=== PATIENT | female | born 1980 | race Two or more races ===

== ENCOUNTER 2020-02-01 14:52 | Emergency (ER) | payer OTHER ==
[~2020-02-01] VITALS: Ht 160 cm; Wt 83.9 kg
[2020-02-01 14:53] VITALS: BP 147/100
--- NOTE | 2020-02-01 15:36 | NUR ---
covid swab sent to lab
== END 2020-02-01 15:38 | disposition home or self-care (01) ==
LOC: ER 14:52
DX: Z03.818 Encounter for observation for suspected exposure to other biological agents ruled out (principal)
CPT/HCPCS: 99283; U0003

== ENCOUNTER 2020-03-02 16:41 | Emergency (ER) | payer OTHER ==
[~2020-03-02] VITALS: Ht 162.6 cm; Wt 84.8 kg
[2020-03-02 17:01] VITALS: BP 138/75
--- NOTE | 2020-03-02 17:36 | NUR ---
Patient discharged to home in stable condition. Written and verbal after care instructions given. Patient verbalizes understanding of instruction.
== END 2020-03-02 17:36 | disposition home or self-care (01) ==
LOC: ER 16:42
DX: Z03.818 Encounter for observation for suspected exposure to other biological agents ruled out (principal)
CPT/HCPCS: 99283; C9803; U0003

== ENCOUNTER 2020-03-28 14:22 | Emergency (ER) | payer OTHER ==
[~2020-03-28] VITALS: Ht 162.6 cm; Wt 84.4 kg
[2020-03-28 14:30] VITALS: BP 140/91
== END 2020-03-28 15:14 | disposition home or self-care (01) ==
LOC: ER 14:22
DX: Z11.59 Encounter for screening for other viral diseases (principal)
CPT/HCPCS: 99283; C9803; U0003

== ENCOUNTER 2020-04-03 15:49 | Emergency (ER) | payer OTHER ==
[~2020-04-03] VITALS: Ht 165.1 cm; Wt 83.9 kg
[2020-04-03 15:50] VITALS: BP 127/88
--- NOTE | 2020-04-03 16:25 | NUR ---
COVID SWAB OBTAINED AND SENT TO LAB.
--- NOTE | 2020-04-03 16:29 | NUR ---
Patient discharged to home in stable condition. Written and verbal after care instructions given. Patient verbalizes understanding of instruction.
== END 2020-04-03 16:32 | disposition home or self-care (01) ==
LOC: ER 16:01
DX: Z11.59 Encounter for screening for other viral diseases (principal)
CPT/HCPCS: 99283; C9803; U0003

== ENCOUNTER 2020-04-27 16:22 | Emergency (ER) | payer OTHER ==
[~2020-04-27] VITALS: Ht 162.6 cm; Wt 80.7 kg
[2020-04-27 16:26] VITALS: BP 139/84
--- NOTE | 2020-04-27 17:02 | NUR ---
Discharge instructions done verbally.
== END 2020-04-27 17:03 | disposition home or self-care (01) ==
LOC: ER 16:23
DX: Z20.828 Contact with and (suspected) exposure to other viral communicable diseases (principal)
CPT/HCPCS: 99283; C9803; U0003

== ENCOUNTER 2020-05-03 15:47 | Emergency (ER) | payer OTHER ==
[~2020-05-03] VITALS: Ht 162.6 cm; Wt 79.4 kg
[2020-05-03 15:50] VITALS: BP 131/84
--- NOTE | 2020-05-03 16:10 | NUR ---
COVID SPECIMEN OBTAINED AND SENT TO LAB.
--- NOTE | 2020-05-03 16:16 | NUR ---
Patient discharged to home in stable condition. Written and verbal after care instructions given. Patient verbalizes understanding of instruction.
== END 2020-05-03 16:18 | disposition home or self-care (01) ==
LOC: ER 15:48
DX: Z20.828 Contact with and (suspected) exposure to other viral communicable diseases (principal)
CPT/HCPCS: 99283; C9803; U0003

== ENCOUNTER 2020-05-09 16:30 | Emergency (ER) | payer OTHER ==
[~2020-05-09] VITALS: Ht 162.6 cm; Wt 79.4 kg
[2020-05-09 16:33] VITALS: BP 133/86
--- NOTE | 2020-05-09 16:49 | NUR ---
COVID SWAB SENT
== END 2020-05-09 16:49 | disposition home or self-care (01) ==
LOC: ER 16:30
DX: Z20.828 Contact with and (suspected) exposure to other viral communicable diseases (principal); R03.0 Elevated blood-pressure reading, without diagnosis of hypertension
CPT/HCPCS: 99283; C9803; U0003

== ENCOUNTER 2020-05-20 17:14 | Emergency (ER) | payer OTHER ==
[~2020-05-20] VITALS: Ht 162.6 cm; Wt 81.6 kg
[2020-05-20 17:31] VITALS: BP 124/67
--- NOTE | 2020-05-20 17:55 | NUR ---
Patient discharged to home in stable condition. Written and verbal after care instructions given. Patient verbalizes understanding of instruction.
== END 2020-05-20 17:56 | disposition home or self-care (01) ==
LOC: ER 17:17
DX: Z20.828 Contact with and (suspected) exposure to other viral communicable diseases (principal)
CPT/HCPCS: 99283; C9803; U0003

== ENCOUNTER 2020-06-03 11:18 | Emergency (ER) | payer OTHER ==
[~2020-06-03] VITALS: Ht 162.6 cm; Wt 81.6 kg
[2020-06-03 11:56] VITALS: BP 133/61
--- NOTE | 2020-06-03 11:58 | NUR ---
COVID SWAB SENT, VERBAL DISCHARGE INSTRUCTIONS PROVIDED.
== END 2020-06-03 11:58 | disposition home or self-care (01) ==
LOC: ER 11:20
DX: Z20.828 Contact with and (suspected) exposure to other viral communicable diseases (principal)
CPT/HCPCS: 99283; C9803; U0003

== ENCOUNTER 2020-06-12 04:01 | Emergency (ER) | payer OTHER ==
[~2020-06-12] VITALS: Ht 162.6 cm; Wt 79.4 kg
[2020-06-12 04:03] VITALS: BP 127/75
--- NOTE | 2020-06-12 04:06 | NUR ---
called for covid swabs
== END 2020-06-12 06:04 | disposition home or self-care (01) ==
LOC: ER 04:05
DX: Z20.828 Contact with and (suspected) exposure to other viral communicable diseases (principal)
CPT/HCPCS: 99283; C9803; U0003

== ENCOUNTER 2020-06-23 16:31 | Emergency (ER) | payer OTHER ==
[~2020-06-23] VITALS: Ht 162.6 cm; Wt 79.4 kg
[2020-06-23 17:00] VITALS: BP 130/82
== END 2020-06-23 17:52 | disposition home or self-care (01) ==
LOC: ER 16:31
DX: Z20.828 Contact with and (suspected) exposure to other viral communicable diseases (principal)
CPT/HCPCS: 99283; C9803; U0003

== ENCOUNTER 2020-06-30 14:52 | Emergency (ER) | payer OTHER ==
[~2020-06-30] VITALS: Ht 162.6 cm; Wt 79.4 kg
[2020-06-30 14:56] VITALS: BP 121/77
--- NOTE | 2020-06-30 15:05 | NUR ---
COVID SPECIMEN OBTAINED AND SENT TO LAB.
--- NOTE | 2020-06-30 15:28 | NUR ---
Patient discharged to home in stable condition. Written and verbal after care instructions given. Patient verbalizes understanding of instruction.
== END 2020-06-30 15:30 | disposition home or self-care (01) ==
LOC: ER 14:53
DX: Z20.828 Contact with and (suspected) exposure to other viral communicable diseases (principal)
CPT/HCPCS: 99283; C9803; U0003

== ENCOUNTER 2020-07-05 15:52 | Emergency (ER) | payer OTHER ==
[~2020-07-05] VITALS: Ht 162.6 cm; Wt 79.4 kg
[2020-07-05 15:55] VITALS: BP 126/75
--- NOTE | 2020-07-05 17:26 | NUR ---
COVID SWAB SENT. Patient discharged to home in stable condition. Written and verbal after care instructions given. Patient verbalizes understanding of instruction.
== END 2020-07-05 17:29 | disposition home or self-care (01) ==
LOC: ER 15:55
DX: Z20.828 Contact with and (suspected) exposure to other viral communicable diseases (principal)
CPT/HCPCS: 99283; C9803; U0003

== ENCOUNTER 2020-07-11 15:58 | Emergency (ER) | payer OTHER ==
[~2020-07-11] VITALS: Ht 162.6 cm; Wt 79.4 kg
[2020-07-11 16:18] VITALS: BP 132/81
== END 2020-07-11 17:10 | disposition home or self-care (01) ==
LOC: ER 16:00
DX: Z20.828 Contact with and (suspected) exposure to other viral communicable diseases (principal)
CPT/HCPCS: 99283; C9803; U0003

== ENCOUNTER 2020-07-21 03:31 | Emergency (ER) | payer OTHER ==
[~2020-07-21] VITALS: Ht 162.6 cm; Wt 79.4 kg
[2020-07-21 03:33] VITALS: BP 121/75
--- NOTE | 2020-07-21 03:49 | NUR ---
COVID SWAB COLLECTED SENT TO LAB FOR TESTING.
== END 2020-07-21 03:51 | disposition home or self-care (01) ==
LOC: ER 03:33
DX: Z20.828 Contact with and (suspected) exposure to other viral communicable diseases (principal)
CPT/HCPCS: 99283; C9803; U0003

== ENCOUNTER 2020-07-28 20:11 | Emergency (ER) | payer OTHER ==
[~2020-07-28] VITALS: Ht 162.6 cm; Wt 79.4 kg
[2020-07-28 20:12] VITALS: BP 132/65
--- NOTE | 2020-07-28 20:21 | NUR ---
COVID SWAB COLLECTED AND SENT TO THE LAB
== END 2020-07-28 20:31 | disposition home or self-care (01) ==
LOC: ER 20:11
DX: Z20.828 Contact with and (suspected) exposure to other viral communicable diseases (principal)
CPT/HCPCS: 99283; C9803; U0003

== ENCOUNTER 2020-08-08 02:01 | Emergency (ER) | payer OTHER ==
[~2020-08-08] VITALS: Ht 162.6 cm; Wt 81.6 kg
[2020-08-08 02:02] VITALS: BP 132/65
== END 2020-08-08 02:33 | disposition home or self-care (01) ==
LOC: ER 02:02
DX: Z20.828 Contact with and (suspected) exposure to other viral communicable diseases (principal)
CPT/HCPCS: 99283; C9803; U0003

== ENCOUNTER 2020-08-14 00:55 | Emergency (ER) | payer OTHER ==
[~2020-08-14] VITALS: Ht 162.6 cm; Wt 81.6 kg
[2020-08-14 01:25] VITALS: BP 119/74
== END 2020-08-14 01:48 | disposition home or self-care (01) ==
LOC: ER 00:56
DX: Z20.828 Contact with and (suspected) exposure to other viral communicable diseases (principal)
CPT/HCPCS: 99283; C9803; U0003

== ENCOUNTER 2020-08-17 04:23 | Emergency (ER) | payer OTHER ==
[~2020-08-17] VITALS: Ht 162.6 cm; Wt 81.6 kg
[2020-08-17 04:25] VITALS: BP 135/61
== END 2020-08-17 04:57 | disposition home or self-care (01) ==
LOC: ER 04:23
DX: Z20.828 Contact with and (suspected) exposure to other viral communicable diseases (principal)
CPT/HCPCS: 99283; C9803; U0003

== ENCOUNTER 2020-08-22 02:05 | Emergency (ER) | payer OTHER ==
[~2020-08-22] VITALS: Ht 162.6 cm; Wt 81.6 kg
[2020-08-22 02:05] VITALS: BP 132/64
== END 2020-08-22 04:57 | disposition home or self-care (01) ==
LOC: ER 02:06
DX: Z20.828 Contact with and (suspected) exposure to other viral communicable diseases (principal)
CPT/HCPCS: 99283; C9803; U0003

== ENCOUNTER 2020-08-26 15:27 | Emergency (ER) | payer OTHER ==
[~2020-08-26] VITALS: Ht 162.6 cm; Wt 86.2 kg
[2020-08-26 15:33] VITALS: BP 127/83
--- NOTE | 2020-08-26 16:24 | NUR ---
covid swab sent. Patient discharged to home in stable condition. Written and verbal after care instructions given. Patient verbalizes understanding of instruction.
== END 2020-08-26 16:24 | disposition home or self-care (01) ==
LOC: ER 15:30
DX: U07.1 COVID-19 (principal)
CPT/HCPCS: 99283; C9803; U0003

== ENCOUNTER 2020-11-08 02:33 | Emergency (ER) | payer OTHER ==
[~2020-11-08] VITALS: Ht 162.6 cm; Wt 86.2 kg
[2020-11-08 02:34] VITALS: BP 121/65
== END 2020-11-08 03:03 | disposition home or self-care (01) ==
LOC: ER 02:33
DX: Z20.822 Contact with and (suspected) exposure to COVID-19 (principal)
CPT/HCPCS: 99283; C9803; U0003

== ENCOUNTER 2020-11-20 00:47 | Emergency (ER) | payer OTHER ==
[~2020-11-20] VITALS: Ht 162.6 cm; Wt 86.2 kg
[2020-11-20 00:48] VITALS: BP 125/66
== END 2020-11-20 01:44 | disposition home or self-care (01) ==
LOC: ER 00:50
DX: Z20.822 Contact with and (suspected) exposure to COVID-19 (principal)
CPT/HCPCS: 99283; C9803; U0003

== ENCOUNTER 2020-11-27 01:24 | Emergency (ER) | payer OTHER ==
[~2020-11-27] VITALS: Ht 162.6 cm; Wt 86.2 kg
[2020-11-27 01:26] VITALS: BP 129/66
== END 2020-11-27 01:55 | disposition home or self-care (01) ==
LOC: ER 01:28
DX: Z20.822 Contact with and (suspected) exposure to COVID-19 (principal)
CPT/HCPCS: 99283; C9803; U0003

== ENCOUNTER 2020-12-04 01:48 | Emergency (ER) | payer OTHER ==
[~2020-12-04] VITALS: Ht 162.6 cm; Wt 86.2 kg
[2020-12-04 01:57] VITALS: BP 134/80
== END 2020-12-04 02:54 | disposition home or self-care (01) ==
LOC: ER 01:52
DX: Z20.822 Contact with and (suspected) exposure to COVID-19 (principal)
CPT/HCPCS: 99283; C9803; U0003

== ENCOUNTER 2020-12-10 02:47 | Emergency (ER) | payer OTHER ==
[~2020-12-10] VITALS: Ht 162.6 cm; Wt 86.2 kg
[2020-12-10 02:50] VITALS: BP 144/80
== END 2020-12-10 03:14 | disposition home or self-care (01) ==
LOC: ER 02:51
DX: Z20.822 Contact with and (suspected) exposure to COVID-19 (principal)
CPT/HCPCS: 99283; C9803; U0003

== ENCOUNTER 2020-12-19 23:22 | Emergency (ER) | payer OTHER ==
[~2020-12-19] VITALS: Ht 162.6 cm; Wt 86.2 kg
[2020-12-19 23:23] VITALS: BP 132/67
== END 2020-12-20 00:13 | disposition home or self-care (01) ==
LOC: ER 23:22
DX: Z20.822 Contact with and (suspected) exposure to COVID-19 (principal)
CPT/HCPCS: 99283; C9803; U0003

== ENCOUNTER 2020-12-27 02:44 | Emergency (ER) | payer OTHER ==
[~2020-12-27] VITALS: Ht 162.6 cm; Wt 86.2 kg
[2020-12-27 02:45] VITALS: BP 124/69
== END 2020-12-27 03:33 | disposition home or self-care (01) ==
LOC: ER 02:44
DX: Z20.822 Contact with and (suspected) exposure to COVID-19 (principal)
CPT/HCPCS: 99283; C9803; U0003

== ENCOUNTER 2021-01-05 01:12 | Emergency (ER) | payer OTHER ==
[~2021-01-05] VITALS: Ht 162.6 cm; Wt 86.2 kg
[2021-01-05 01:12] VITALS: BP 112/75
== END 2021-01-05 02:31 | disposition home or self-care (01) ==
LOC: ER 01:12
DX: Z20.822 Contact with and (suspected) exposure to COVID-19 (principal)
CPT/HCPCS: 99283; C9803; U0003

== ENCOUNTER 2021-01-12 00:26 | Emergency (ER) | payer OTHER ==
[~2021-01-12] VITALS: Ht 162.6 cm; Wt 86.2 kg
[2021-01-12 00:26] VITALS: BP 121/79
== END 2021-01-12 00:58 | disposition home or self-care (01) ==
LOC: ER 00:28
DX: Z20.822 Contact with and (suspected) exposure to COVID-19 (principal)
CPT/HCPCS: 99283; C9803; U0003

== ENCOUNTER 2021-01-19 00:57 | Emergency (ER) | payer OTHER | END 2021-01-19 01:38 | disposition home or self-care (01) | LOC: ER 00:57 | DX: Z20.822 Contact with and (suspected) exposure to COVID-19 (principal) | CPT/HCPCS: 99283; C9803; U0003 ==

== ENCOUNTER 2021-01-26 02:27 | Emergency (ER) | payer OTHER ==
[~2021-01-26] VITALS: Ht 162.6 cm; Wt 86.2 kg
[2021-01-26 02:27] VITALS: BP 122/75
== END 2021-01-26 03:11 | disposition home or self-care (01) ==
LOC: ER 03:10
DX: Z20.822 Contact with and (suspected) exposure to COVID-19 (principal)
CPT/HCPCS: 99283; C9803; U0003

== ENCOUNTER 2021-02-02 02:22 | Emergency (ER) | payer OTHER ==
[~2021-02-02] VITALS: Ht 162.6 cm; Wt 86.2 kg
[2021-02-02 02:27] VITALS: BP 132/61
== END 2021-02-02 02:48 | disposition home or self-care (01) ==
LOC: ER 02:23
DX: Z20.822 Contact with and (suspected) exposure to COVID-19 (principal)
CPT/HCPCS: 99283; C9803; U0003

== ENCOUNTER 2021-02-08 23:10 | Emergency (ER) | payer OTHER ==
[~2021-02-08] VITALS: Ht 162.6 cm; Wt 86.2 kg
[2021-02-08 23:10] VITALS: BP 120/64
--- NOTE | 2021-02-10 12:36 | NUR ---
COVID NEGATIVE PER LAB
== END 2021-02-09 00:34 | disposition home or self-care (01) ==
LOC: ER 23:12
DX: Z20.822 Contact with and (suspected) exposure to COVID-19 (principal)
CPT/HCPCS: 99283; C9803; U0003

== ENCOUNTER 2021-02-15 23:57 | Emergency (ER) | payer OTHER ==
[~2021-02-15] VITALS: Ht 162.6 cm; Wt 86.2 kg
[2021-02-15 23:58] VITALS: BP 128/64
== END 2021-02-16 00:28 | disposition home or self-care (01) ==
LOC: ER 02-16
DX: Z20.822 Contact with and (suspected) exposure to COVID-19 (principal)
CPT/HCPCS: 99283; C9803; U0003

== ENCOUNTER 2021-02-24 00:47 | Emergency (ER) | payer OTHER ==
[~2021-02-24] VITALS: Ht 162.6 cm; Wt 86.2 kg
[2021-02-24 00:47] VITALS: BP 121/97
== END 2021-02-24 02:47 | disposition home or self-care (01) ==
LOC: ER 00:52
DX: Z20.822 Contact with and (suspected) exposure to COVID-19 (principal)
CPT/HCPCS: 99283; C9803; U0003

== ENCOUNTER 2021-03-02 15:51 | Emergency (ER) | payer OTHER ==
[~2021-03-02] VITALS: Ht 160 cm; Wt 81.6 kg
[2021-03-02 15:57] VITALS: BP 120/80
--- NOTE | 2021-03-02 16:29 | NUR ---
Patient discharged to home in stable condition. Written and verbal after care instructions given. Patient verbalizes understanding of instruction.
== END 2021-03-02 16:30 | disposition home or self-care (01) ==
LOC: ER 15:53
DX: Z20.822 Contact with and (suspected) exposure to COVID-19 (principal)
CPT/HCPCS: 99283; C9803; U0003

== ENCOUNTER 2021-05-26 19:23 | Emergency (ER) | payer OTHER ==
[~2021-05-26] VITALS: Ht 162.6 cm; Wt 81.6 kg
[2021-05-26 19:35] VITALS: BP 145/84
== END 2021-05-26 21:04 | disposition home or self-care (01) ==
LOC: ER 19:24
DX: Z20.822 Contact with and (suspected) exposure to COVID-19 (principal)
CPT/HCPCS: 99283; C9803; U0003

== ENCOUNTER 2022-12-15 08:19 | Outpatient (CLI) | payer BC ==
[2022-12-15 09:30] LABS: BASOPHILS # (AUTO) 0.1 K/uL (0.0-0.2); BASOPHILS % (AUTO) 0.6 % (0.0-2.0); EOSINOPHILS % (AUTO) 1.6 % (0.0-6.0); HEMATOCRIT 44 % (33-45); LYMPHOCYTES # (AUTO) 2.7 K/uL (0.8-4.8); MEAN CORPUSCULAR HGB CONC 34 g/dl (31.0-36.0); MEAN CORPUSCULAR VOLUME 91 fL (82-100); MONOCYTES # (AUTO) 0.4 K/uL (0.1-1.30); MONOCYTES % (AUTO) 5.2 % (2.0-12.0); NEUTROPHILS # (AUTO) 5.4 K/uL (1.8-8.9); NEUTROPHILS % (AUTO) 61.6 % (43.0-81.0); PLATELET COUNT (AUTO) 304 K/uL (150-450); WHITE BLOOD COUNT (AUTO) 8.7 K/uL (4.3-11.0)
[2022-12-15 09:40] LABS: BILIRUBIN,URINE 1+ (NEGATIVE); COLOR,URINE YELLOW (YELLOW); LEUKOCYTE ESTERASE ,URINE NEGATIVE (NEGATIVE); NITRITE, URINE NEGATIVE (NEGATIVE); PROTEIN,URINE NEGATIVE (NEGATIVE); UGLUCOSE NEGATIVE (NEGATIVE); UROBILINOGEN,URINE 0.2 EU/dL (0.2)
[2022-12-15 10:07] LABS: THYROID STIMULATING HORMONE 2.559 uIU/mL (0.358-3.74); URIC ACID 4.6 mg/dL (2.6-7.2)
[2022-12-15 10:11] LABS: BACTERIA,URINE Few /HPF (None Seen); MUCUS,URINE Few /LPF (None Seen); SQUAMOUS EPITHELIAL CELL,UR Few /HPF (None Seen); WBC,URINE 0-2 /HPF (0-3)
[2022-12-15 10:13] LABS: ALBUMIN 3.9 g/dL (3.4-5.0); BILIRUBIN,TOTAL 0.4 mg/dL (0.2-1.0); CALCIUM, SERUM 9.3 mg/dL (8.5-10.1); CREATININE 0.7 mg/dL (0.6-1.3); POTASSIUM 3.7 mmol/L (3.5-5.1); TOTAL PROTEIN, SERUM 7.7 g/dL (6.4-8.2)
== END 2022-12-15 23:59 | disposition home or self-care (01) ==
LOC: LAB 08:19
PROVIDERS: ATTEND Legal Medicine
DX: Z00.00 Encounter for general adult medical examination without abnormal findings (principal); R53.1 Weakness; E11.9 Type 2 diabetes mellitus without complications; E78.00 Pure hypercholesterolemia, unspecified; E03.9 Hypothyroidism, unspecified; D64.9 Anemia, unspecified; E55.9 Vitamin D deficiency, unspecified; I10 Essential (primary) hypertension
CPT/HCPCS: 36415; 80053-TC; 80061-TC; 81001; 82306; 82607-TC; 82728-TC; 83540-TC; 84439-TC; 84443-TC; 84550-TC; 85025-TC